=== PATIENT | female | born 1985 | race American Indian/Alaskan Native ===

== ENCOUNTER 2022-04-13 10:25 | Emergency (ER) | payer SELFPAY ==
--- NOTE | 2022-04-13 11:19 | Emergency Department Report ---
Stated Complaint: FLU SX Time Seen by Provider: 04/13/22 11:16 - HPI History of Present Illness: Few day history of worsening chest pain shortness of breath body aches. - ROS Review of Systems: Complaint chest pain, shortness of breath, body aches. - Exam Vital Signs: Vital Signs 04/13/22 11:14 Temperature 99 F Pulse Rate 145 H Respiratory 16 Rate Blood Pressure 145/108 [Left] O2 Sat by Pulse 95 Oximetry Physical Exam: Alert and oriented x3. MSE screening note: Focused history and physical exam performed. Due to findings the following was ordered: CBC, CMP, troponin, x-ray, EKG. Patient to be further evaluated when she gets in to room in the back by another provider. ED Disposition for MSE Condition: Stable
[2022-04-13 12:06] LABS: Hemoglobin 13.4 gm/dl (10.1-14.3); Mean Corpuscular HGB Conc 33 % (30-34); Mean Corpuscular Volume 85 fl (79-97); Platelet Count 231 K/mm3 (140-440); Red Blood Count 4.85 M/mm3 (3.65-5.03); Red Cell Distribution Width 15.6 % (13.2-15.2)
[2022-04-13 12:08] LABS: Alanine Aminotransferase 13 units/L (7-56); Albumin 4.1 g/dL (3.9-5); BUN/Creatinine Ratio 11; Blood Urea Nitrogen 10 mg/dL (7-17); Calcium 9.3 mg/dL (8.4-10.2); Hemolysis Index 6
--- NOTE | 2022-04-13 12:55 | XRay Report ---
CHEST 2 VIEWS INDICATION / CLINICAL INFORMATION: chest pain. COMPARISON: None available. FINDINGS: SUPPORT DEVICES: None. HEART / MEDIASTINUM: No significant abnormality. LUNGS / PLEURA: No significant pulmonary abnormality. No significant pleural effusion. No pneumothora x. ADDITIONAL FINDINGS: No significant additional findings. IMPRESSION: 1. No acute abnormality of the chest. Signer Name: Santi Biggs MD Signed: 04/13/2022 12:51 PM Workstation Name: [id number]
--- NOTE | 2022-04-13 17:44 | Emergency Department Report ---
ED Shortness of Breath HPI - General Chief Complaint: Dyspnea/Respdistress Stated Complaint: FLU SX Time Seen by Provider: 04/13/22 11:16 Source: patient Mode of arrival: Ambulatory Limitations: No Limitations - History of Present Illness Initial Comments: 36-year-old female with no significant past medical history reports to the ER with complaints of nasal congestion and shortness of breath while breathing out of her nose and chest discomfort with coughing. Patient reports symptoms started on Sunday after work. Patient reports that she works at a [employer] where other children and other adult employees are experiencing similar symptoms. Patient reports doing a at home COVID test that was negative. Patient reports taken paoo-[id number] medication with no relief. No other acute symptoms reported - Related Data Previous Rx's Medication Instructions Recorded Last Taken Type Benzonatate [Tessalon Perles] 100 mg PO Q8HR PRN 7 Days #21 cap 04/13/22 Unknown Rx predniSONE [Deltasone] 40 mg PO QDAY 5 Days #10 tab 04/13/22 Unknown Rx Allergies Allergy/AdvReac Type Severity Reaction Status Date / Time No Known Allergies Allergy Verified 04/13/22 11:14 ED Review of Systems ROS: Stated complaint: FLU SX Other details as noted in HPI Comment: All other systems reviewed and negative Respiratory: shortness of breath Cardiovascular: chest pain (With cough only) ED Past Medical Hx - Past Medical History Previous Medical History?: No - Medications Home Medications: Home Medications Medication Instructions Recorded Confirmed Last Taken Type Benzonatate [Tessalon Perles] 100 mg PO Q8HR PRN 7 Days #21 cap 04/13/22 Unknown Rx predniSONE [Deltasone] 40 mg PO QDAY 5 Days #10 tab 04/13/22 Unknown Rx ED Physical Exam - General Limitations: No Limitations General appearance: alert, in no apparent distress - Head Head exam: Present: atraumatic, normocephalic - Eye Eye exam: Present: normal appearance - ENT ENT exam: Present: mucous membranes moist - Neck Neck exam: Present: normal inspection - Respiratory Respiratory exam: Present: normal lung sounds bilaterally. Absent: respiratory distress, wheezes, rales, chest wall tenderness - Cardiovascular Cardiovascular Exam: Present: regular rate, normal rhythm. Absent: systolic murmur, diastolic murmur, rubs, gallop - GI/Abdominal GI/Abdominal exam: Present: soft, normal bowel sounds - Extremities Exam Extremities exam: Present: normal inspection - Back Exam Back exam: Present: normal inspection - Neurological Exam Neurological exam: Present: alert, oriented X3 - Psychiatric Psychiatric exam: Present: normal affect, normal mood - Skin Skin exam: Present: warm, dry, intact, normal color. Absent: rash ED Course Vital Signs 04/13/22 04/13/22 04/13/22 11:14 17:48 18:32 Temperature 99 F Pulse Rate 145 H 90 99 H Respiratory 16 20 Rate Blood Pressure 145/108 159/87 [Left] O2 Sat by Pulse 95 97 96 Oximetry ED Medical Decision Making - Lab Data Result diagrams: 04/13/22 11:25 04/13/22 11:25 - Radiology Data Radiology results: report reviewed, [place] [address] XRay Report Signed Patient: VALENTINO MUNROE MR#: [id number] : 1985 Acct:[id number] Age/Sex: 36 / F ADM Date: 04/13/22 Loc: ED Attending Dr: Ordering Physician: KATHRYN FOY Date of Service: 04/13/22 Procedure(s): XR chest routine 2V Accession Number(s): [id number] cc: KATHRYN FOY Fluoro Time In Minutes: CHEST 2 VIEWS INDICATION / CLINICAL INFORMATION: chest pain. COMPARISON: None available. FINDINGS: SUPPORT DEVICES: None. HEART / MEDIASTINUM: No significant abnormality. LUNGS / PLEURA: No significant pulmonary abnormality. No significant pleural effusion. No pneumothorax. ADDITIONAL FINDINGS: No significant additional findings. IMPRESSION: 1. No acute abnormality of the chest. Signer Name: Santi Biggs MD Signed: 04/13/2022 12:51 PM Workstation Name: [id number] Transcribed By: [place] Dictated By: Santi Biggs MD Electronically Authenticated By: Santi Biggs MD Signed Date/Time: 04/13/22 125 DD/ 125 TD/TT: - Medical Decision Making 36-year-old female with complaints of nasal congestion with shortness of breath due to nasal congestion, chest discomfort with coughing. Negative at home COVID test. 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 No acute findings on physical exam. Labs with no acute process noted. Troponin negative, CBC negative, CMP negative. Chest x-ray with no acute process noted. . Patient informed symptoms likely due to upper respiratory infection. Patient informed to take OTC medications with pseudoephedrine to help with symptoms. Patient to be sent home with a short course of steroids. Patient agrees with plan of care and verbalized understanding. Patient informed also to possibly repeat a COVID test in in 2 to 3 days. Patient informed to report back to the ER if symptoms get worse and to follow-up with her primary care provider as needed. Vital Signs 04/13/22 11:14 Temperature 99 F Pulse Rate 145 H Respiratory 16 Rate Blood Pressure 145/108 [Left] O2 Sat by Pulse 95 Oximetry Vital Signs (72 hours) 04/13/22 04/13/22 11:14 17:48 Temperature 99 F Pulse Rate 145 H 90 Respiratory 16 Rate Blood Pressure 145/108 [Left] O2 Sat by Pulse 95 97 Oximetry Labs 04/13/22 04/13/22 04/13/22 11:25 11:25 11:25 WBC 3.6 L RBC 4.85 Hgb 13.4 Hct 41.0 MCV 85 MCH 28 MCHC 33 RDW 15.6 H Plt Count 231 Sodium 138 Potassium 3.4 L Chloride 103.1 Carbon Dioxide 20 L Anion Gap 18 BUN 10 Creatinine 0.9 Estimated GFR > 60 BUN/Creatinine Ratio 11 Glucose 89 Calcium 9.3 Total Bilirubin 0.40 AST 17 ALT 13 Alkaline Phosphatase 73 Troponin T < 0.010 Total Protein 8.4 H Albumin 4.1 Albumin/Globulin Ratio 1.0 HCG, Qual Negative Critical care attestation.: If time is entered above; I have spent that time in minutes in the direct care of this critically ill patient, excluding procedure time. ED Disposition Clinical Impression: Nasal congestion URI (upper respiratory infection) Qualifiers: URI type: unspecified viral URI Qualified Code(s): J06.9 - Acute upper respiratory infection, unspecified Cough Qualifiers: Cough type: acute Qualified Code(s): R05.1 - Acute cough Disposition: 01 HOME / SELF CARE / HOMELESS Is pt being admited?: No Condition: Stable Instructions: Upper Respiratory Infection, Adult, Cough, Adult, Viral Respiratory Infection Prescriptions: predniSONE [Deltasone] 40 mg PO QDAY 5 Days #10 tab Benzonatate [Tessalon Perles] 100 mg PO Q8HR PRN 7 Days #21 cap PRN Reason: cough Referrals: ISH MONAE MD [Primary Care Provider] - 3-5 Days Forms: Work/School Release Form(ED) Time of Disposition: 17:48
[2022-04-13] MEDS ORDERED: predniSONE 20 MG TAB PO ONE (18:17)
[2022-04-13 18:42] VITALS: BP 159/87
--- NOTE | 2022-04-14 17:47 | Electrocardiograph Report ---
[facility] Test Date: 2022-04-13 Test Time: 11:21:34 Pat Name: VALENTINO MUNROE Department: Room: Gender: F Pharmacy Services Director: NURSE : 1985 Requested By: MADAN HILL Order Number: [id number] Reading MD: Luke Ballesteros Measurements Intervals [place] Rate: 124 P: 53 VT: 139 QRS: 35 QRSD: 81 T: 255 QT: 295 QTc: 424 Interpretive Statements Sinus tachycardia Probable left atrial enlargement Nonspecific repol abnormality, diffuse leads No previous ECG available for comparison Electronically Signed On 04-14-2022 17:46:54 EDT by Luke Ballesteros
== END 2022-04-13 18:35 | disposition home or self-care (01) ==
LOC: ED 10:25
DX: R09.81 Nasal congestion (principal); J06.9 Acute upper respiratory infection, unspecified; R05.9 Cough, unspecified
CPT/HCPCS: 36415; 71046; 80053; 84484; 84703; 85027; 93005; 99284

== ENCOUNTER 2022-05-26 05:20 | Emergency (ER) | payer SELFPAY ==
[2022-05-26 05:25] VITALS: BP 136/100
[2022-05-26] MEDS ORDERED: dexAMETHasone 4 MG/ML VIAL IM ONE (08:29)
--- NOTE | 2022-05-26 08:38 | Emergency Department Report ---
ED Rash HPI - HPI Chief Complaint: Skin Rash Stated Complaint: ITCHING Time Seen by Provider: 05/26/22 07:45 Duration: 1-2 weeks Location: Upper Extremities, Lower Extremities Suspected Cause: Unknown Rash Symptoms: Yes Itching, No Facial Swelling, No Tongue/Oral Swelling, No Breathing Difficulties, No Choking Sensation, No Wheezing/Dyspnea, No Peeling, No Blistering, No Fever, No Lightheaded, No Malaise, No Myalgias Severity: moderate Other History: This is a 36-year-old -[place] female who presents to the emergency room with a pruritic rash to extremities for 1 to 2 weeks. 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 Patient states one of the mother's told her the patient had bedbugs. Patient states she is applying topical cream with no relief. Reports rash is worse at night. Denies recent travel, swelling, blistering, redness. ED Review of Systems ROS: Stated complaint: ITCHING Other details as noted in HPI Constitutional: denies: chills, fever Respiratory: denies: cough, shortness of breath, wheezing Cardiovascular: denies: chest pain, palpitations Musculoskeletal: denies: back pain, joint swelling, arthralgia Skin: rash, pruritus. denies: lesions Neurological: denies: headache, weakness, paresthesias Psychiatric: denies: anxiety, depression ED Past Medical Hx - Medications Home Medications: Home Medications Medication Instructions Recorded Confirmed Last Taken Type Benzonatate [Tessalon Perles] 100 mg PO Q8HR PRN 7 Days #21 cap 04/13/22 Unknown Rx predniSONE [Deltasone] 40 mg PO QDAY 5 Days #10 tab 04/13/22 Unknown Rx Prednisone [predniSONE 10 mg 10 mg PO .TAPER #1 05/26/22 Unknown Rx (6-Day Pack, 21 Tabs)] hydrOXYzine PAMOATE [Vistaril] 25 mg PO Q6HR PRN #20 capsule 05/26/22 Unknown Rx Rash Exam - Exam General: Vital signs noted. No distress. Alert and acting appropriately. HEENT: No Periorbital Edema, No Conjuctival Injection, No Chemosis, No Perioral Edema, No Tongue Edema, No Uvular Edema, No Compromised Airway, No Drooling Lungs: Yes Good Air Exchange (Normal Breath Sounds), No Wheezes, No Ronchi, No Stridor, No Cough, No Labored Respirations, No Retractions, No Use of Accessory Muscles, No Other Abnormal Lung Sounds Heart: Yes Regular, No Murmur Skin: Yes Maculopapular Rash (Acute papular rash to bilateral upper extremity and bilateral lower extremity, sensation intact, nontender, no erythema, no discharge), No Urticarial Rash, No Morbilliform rash, No Bulla(e), No Excoriations, No Weeping, No Tenderness, No Erythema, No Edema, No Encrustations Other: Positive: Abdomen Normal, Neurologic Normal ED Course Vital Signs 05/26/22 05:24 Temperature 98.4 F Pulse Rate 136 H Respiratory 18 Rate Blood Pressure 136/100 O2 Sat by Pulse 95 Oximetry ED Medical Decision Making - Medical Decision Making This is a 36-year-old -Finnish female who presents with a pruritic rash for 2 weeks, consistent with contact dermatitis. Differential diagnosis includes contact, atopic dermatitis, eczematous dermatitis, psoriasis. History and exam findings not consistent with dangerous etiologies of rash such as SJS/TEN, or secondary dangerous causes such as petechial rashes from thrombocytopenia or rickettsial infections. Symptomatic treatment discussed with patient. Given Decadron 8 mg IM while in ER. Start prednisone taper, Vistaril. Instructed to get Premarin shampoo [id number]. Instruct to follow up with PCP or derm PRN. Patient discharged home stable. Critical care attestation.: If time is entered above; I have spent that time in minutes in the direct care of this critically ill patient, excluding procedure time. ED Disposition Clinical Impression: Pruritic rash Contact dermatitis Qualifiers: Contact dermatitis type: unspecified Contact dermatitis trigger: unspecified trigger Qualified Code(s): L25.9 - Unspecified contact dermatitis, unspecified cause Disposition: 01 HOME / SELF CARE / HOMELESS Is pt being admited?: No Condition: Stable Instructions: Contact Dermatitis, [id number] Prescriptions: Prednisone [predniSONE 10 mg (6-Day Pack, 21 Tabs)] 10 mg PO .TAPER #1 hydrOXYzine PAMOATE [Vistaril] 25 mg PO Q6HR PRN #20 capsule PRN Reason: Itching Referrals: ISH MONAE MD [Staff Physician] - 3-[address] [facility] [Provider Group] - 3-5 Days Forms: Work/School Release Form(ED) Time of Disposition: 08:39
== END 2022-05-26 08:46 | disposition home or self-care (01) ==
LOC: ED 05:20
DX: L25.9 Unspecified contact dermatitis, unspecified cause (principal); L29.9 Pruritus, unspecified; Z79.899 Other long term (current) drug therapy
CPT/HCPCS: 96372; 99282; J1100